=== PATIENT | female | born 2000 | race Two or more races ===

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

== ENCOUNTER 2023-01-30 11:29 | Emergency (ER) | payer MEDICAID ==
[~2023-01-30] VITALS: Ht 157.5 cm; Wt 93.0 kg
[2023-01-30 11:36] VITALS: BP 142/88; TEMP 98; O2SAT 100
[2023-01-30 11:37] VITALS: PULSE 102; RESP 20
== END 2023-01-30 12:13 | disposition home or self-care (01) ==
LOC: ER 11:29
DX: H61.21 Impacted cerumen, right ear (principal)
CPT/HCPCS: 99281